=== PATIENT | male | born 2000 | race American Indian/Alaskan Native ===

== ENCOUNTER 2019-04-29 19:54 | Emergency (ER) | payer SELFPAY ==
--- NOTE | 2019-04-29 20:54 | Event Note ---
ED Screening Note Date of service: 04/29/19 Time: 20:52 ED Screening Note: Pt complains of abdominal pain x today. Hx of Chron's Dz. Denies hematochezia, fever, dysuria, N/V/D. +constipation This initial assessment/diagnostic orders/clinical plan/treatment(s) is/are subject to change based on patients health status, clinical progression and re- assessment by fellow clinical providers in the ED. Further treatment and workup at subsequent clinical providers discretion. Patient/guardian urged not to elope from the ED as their condition may be serious if not clinically assessed and managed. Initial orders include: Labs CT
[2019-04-29 21:30] LABS: Basophils # (Auto) 0.1 K/mm3 (0.0-0.1); Basophils % (Auto) 0.8 % (0.0-1.8); Eosinophils # (Auto) 0.1 K/mm3 (0.0-0.4); Eosinophils % (Auto) 1.6 % (0.0-4.3); Hematocrit 45.4 % (35.5-45.6); Lymphocytes # (Auto) 2.2 K/mm3 (1.2-5.4); Lymphocytes % (Auto) 31.7 % (13.4-35.0); Mean Corpuscular HGB Conc 33 % (32-34); Mean Corpuscular Volume 87 fl (84-94); Monocytes # (Auto) 0.4 K/mm3 (0.0-0.8); Monocytes % (Auto) 5.3 % (0.0-7.3); Platelet Count 306 K/mm3 (140-440); Red Blood Count 5.19 M/mm3 (3.65-5.03); Red Cell Distribution Width 13.8 % (13.2-15.2)
[2019-04-29 21:51] LABS: Alanine Aminotransferase 18 units/L (7-56); Albumin 4.5 g/dL (3.9-5); BUN/Creatinine Ratio 13; Blood Urea Nitrogen 12 mg/dL (9-20); Calcium 9.5 mg/dL (8.4-10.2); Hemolysis Index 10
[2019-04-29] MEDS ORDERED: PERCOCET 5/325 PO ONE (22:25)
--- NOTE | 2019-04-29 23:28 | Emergency Department Report ---
HPI - General Chief Complaint: Abdominal Pain Time Seen by Provider: 04/29/19 22:12 - HPI HPI: 18-year-old male presents to the emergency department with a complaint of some mid to lower abdominal pain that started about 5 hours prior to presentation. He denies any nausea, vomiting, diarrhea, fever, dysuria, discharge, back pain. He says he has a history of Crohn's disease and this feels similar. He did not take anything for his symptoms prior to arrival today. He does not have any local primary care physician or truck hopper as he just moved up here from [place]. ED Past Medical Hx - Past Medical History Hx Asthma: Yes Additional medical history: Crohns disease - Surgical History Past Surgical History?: No - Social History Smoking Status: Current Some Day Smoker Substance Use Type: None - Medications Home Medications: Home Medications Medication Instructions Recorded Confirmed Last Taken Type Nitrofurantoin Phelps/M-Cryst 100 mg PO Q12HR #14 capsule 04/29/19 Unknown Rx [Macrobid CAP] ED Review of Systems ROS: Stated complaint: ABD PAIN Other details as noted in HPI Comment: All other systems reviewed and negative Constitutional: denies: chills, fever Eyes: denies: eye pain, vision change ENT: denies: ear pain, throat pain Respiratory: denies: cough, shortness of breath Cardiovascular: denies: chest pain, palpitations Gastrointestinal: abdominal pain. denies: vomiting, diarrhea Genitourinary: denies: dysuria, discharge Musculoskeletal: denies: back pain, arthralgia Skin: denies: rash, lesions Neurological: denies: headache, weakness Physical Exam - Physical Exam Vital Signs: Vital Signs 04/29/19 04/29/19 19:59 23:09 Temperature 97.8 F Pulse Rate 78 Respiratory 18 16 Rate Blood Pressure 130/78 O2 Sat by Pulse 98 98 Oximetry Physical Exam: GENERAL: The patient is well-developed well-nourished. HENT: Normocephalic. Atraumatic. Patient has moist mucous membranes. EYES: Extraocular motions are intact. NECK: Supple. Trachea is midline. CHEST/LUNGS: Clear to auscultation. There is no respiratory distress noted. HEART/CARDIOVASCULAR: Regular. There is no tachycardia. There is no murmur. ABDOMEN: Abdomen is soft. There is some mid to lower abdominal tenderness to palpation. No guarding. Patient has normal bowel sounds. There is no abdominal distention. SKIN: Skin is warm and dry. NEURO: The patient is awake, alert, and oriented. The patient is cooperative. The patient has no focal neurologic deficits. Normal speech. MUSCULOSKELETAL: There is no tenderness or deformity. There is no evidence of acute injury. ED Course Vital Signs 04/29/19 04/29/19 19:59 23:09 Temperature 97.8 F Pulse Rate 78 Respiratory 18 16 Rate Blood Pressure 130/78 O2 Sat by Pulse 98 98 Oximetry ED Medical Decision Making - Lab Data Result diagrams: 04/29/19 21:09 04/29/19 21:09 - Radiology Data Radiology results: image reviewed interpreted by me: Abdominal x-ray shows nonspecific nonobstructive bowel gas - Medical Decision Making Patient presents with some acute lower abdominal discomfort and a history of Crohn's disease. Labs have been unremarkable except for a urinalysis which shows a mild to moderate urinary tract infection. Abdominal x-ray shows nonspecific nonobstructive bowel gas. Patient was given a single pain pill and upon reevaluation he is feeling improved. Vital signs stable throughout his ED course including being afebrile. He will be placed on antibiotics for the urinary tract infection. He has been given referrals for primary care and gastroenterology. He will return to the emergency Department with any worsening of his symptoms or any acute distress. - Differential Diagnosis Crohn's, colitis, UTI, gastritis Critical Care Time: No Critical care attestation.: If time is entered above; I have spent that time in minutes in the direct care of this critically ill patient, excluding procedure time. ED Disposition Clinical Impression: History of Crohn's disease Abdominal pain Qualifiers: Abdominal location: unspecified location Qualified Code(s): R10.9 - Unspecified abdominal pain UTI (urinary tract infection) Qualifiers: Urinary tract infection type: acute cystitis Hematuria presence: without hematuria Qualified Code(s): N30.00 - Acute cystitis without hematuria Disposition: TO HOME OR SELFCARE Is pt being admited?: No Condition: Stable Instructions: Urinary Tract Infection in Men (ED), Abdominal Pain (ED) Additional Instructions: Please follow-up with a primary care physician in the next few days. I am also giving you a referral for a local truck hopper, Dr. Rogers, to follow up regarding your abdominal pain and history of Crohn's disease. Take the antibiotics as prescribed. Return to the emergency Department with any worsening of your symptoms or any acute distress. Prescriptions: Nitrofurantoin Phelps/M-Cryst [Macrobid CAP] 100 mg PO Q12HR #14 capsule Referrals: SELENA LIM MD [Staff Physician] - 3-5 Days MELANIE ROGERS MD [Staff Physician] - 3-5 Days [facility] [Outside] - 3-5 Days Forms: Accompanied Note, Work/School Release Form(ED) Time of Disposition: 23:59
[2019-04-29 23:48] LABS: Bacteria,Urine 1+ /HPF (Negative); Bilirubin,Urine NEG (Negative); Blood,Urine NEG (Negative); Calcium Oxalate Crystals,Urine 1+; Color,Urine Amber (Yellow); Mucus,Urine 3+ /HPF
--- NOTE | 2019-04-29 23:48 | XRay Report ---
ABDOMEN 2 VIEW(S) INDICATION / CLINICAL INFORMATION: Abd pain. COMPARISON: None available. FINDINGS: TUBES / LINES: None. BOWEL GAS PATTERN: No significant abnormality. FREE AIR / EXTRALUMINAL GAS: None seen. ADDITIONAL FINDINGS: No significant additional findings. IMPRESSION: 1. No significant abnormality. Signer Name: Spike Jones MD Signed: 04/29/2019 11:43 PM Workstation Name: [employer]
[2019-04-30 00:41] VITALS: BP 128/64
== END 2019-04-30 00:36 | disposition home or self-care (01) ==
LOC: ED 19:54
DX: N39.0 Urinary tract infection, site not specified (principal); K50.90 Crohn's disease, unspecified, without complications; F17.200 Nicotine dependence, unspecified, uncomplicated
CPT/HCPCS: 36415; 74019; 80053; 81001; 83690; 85025; 87086